=== PATIENT | female | born 1980 ===

== ENCOUNTER 2017-12-19 06:58 | Emergency (ER) | payer OTHER ==
[2017-12-19 07:22] VITALS: RESP 16
--- NOTE | 2017-12-19 08:12 | ED PDOC ---
HPI: Headache Time Seen by Provider: 12/19/17 07:39 Chief Complaint (Nursing): Headache History Per: Patient History/Exam Limitations: no limitations Onset/Duration Of Symptoms: Gradual (2 weeks) Current Symptoms Are (Timing): Other (waxing and waning) Severity: Moderate Quality: Dull, Aching Preceeding Symptoms: None Associated Symptoms: Photophobia. denies: Blurred Vision, Nausea, Vomiting, Extremity Weakness Additional History Per: Patient Additional Complaint(s): Patient complaints of headache, right ear pain and neck pain x 2 days. No medication taken [employer]. no trauma mild vertigo worse with head movement light and sounds, no n/v. no prev sx. Past Medical History Reviewed: Historical Data, Nursing Documentation, Vital Signs Vital Signs: Last Vital Signs Temp 97.7 F 12/19/17 07:20 Pulse 73 12/19/17 07:20 Resp 16 12/19/17 07:20 BP 128/82 12/19/17 07:20 Pulse Ox 100 12/19/17 07:20 - Medical History PMH: No Chronic Diseases - Family History Family History: States: Unknown Family Hx - Living Arrangements Living Arrangements: With Family - Social History Current smoker - smoking cessation education provided: No - Home Medications Home Medications: Ambulatory Orders Medication Instructions Recorded Amoxicillin/Clavulanate [Augmentin 1 tab PO BID #28 tab 12/19/17 875 MG-125 MG] oxyCODONE/Acetaminophen [Percocet 1 tab PO TID PRN #12 tab 12/19/17 5/325 mg Tab] - Allergies Allergies/Adverse Reactions: Allergies Allergy/AdvReac Type Severity Reaction Status Date / Time No Known Allergies Allergy Verified 12/19/17 07:20 Review of Systems ROS Statement: Except As Marked, All Systems Reviewed And Found Negative Constitutional: Negative for: Fever, Chills Eyes: Negative for: Conjunctivae Inflammation, Redness Cardiovascular: Negative for: Chest Pain, Palpitations Respiratory: Negative for: Cough, Shortness of Breath Gastrointestinal: Negative for: Nausea, Vomiting, Abdominal Pain Musculoskeletal: Positive for: Neck Pain Skin: Negative for: Rash Neurological: Positive for: Headache, Dizziness. Negative for: Weakness, Numbness, Incoordination, Change in Speech, Confusion, Seizures, Altered Mental Status Physical Exam - Reviewed Nursing Documentation Reviewed: Yes Vital Signs Reviewed: Yes - Physical Exam Appears: Positive for: Uncomfortable (tearfull) Head Exam: Positive for: ATRAUMATIC, NORMAL INSPECTION, NORMOCEPHALIC Skin: Positive for: Normal Color, Warm, Dry Eye Exam: Positive for: Normal appearance, EOMI, PERRL. Negative for: Nystagmus , Periorbital swelling, Periorbital tenderness, Conjunctival injection, Scleral icterus ENT: Positive for: Pharynx Is (clear,mmm), TM Is/Are (nml bl). Negative for: Nasal Congestion, Pharyngeal Erythema, Tonsillar Exudate, Tonsillar Swelling Neck: Positive for: Normal, Painless ROM, Supple. Negative for: Decreased ROM, Limited ROM, Trachea Midline, Pain On Movement Of Neck Cardiovascular/Chest: Positive for: Regular Rate, Rhythm, Chest Non Tender. Negative for: Edema, Gallop, Murmur, Bradycardia, Tachycardia Respiratory: Positive for: Normal Breath Sounds. Negative for: Decreased Breath Sounds, Accessory Muscle Use, Crackles, Rales, Rhonchi, Stridor, Wheezing , Respiratory Distress Pulses-Radial (L): 2+ Pulses-Radial (R): 2+ Gastrointestinal/Abdominal: Positive for: Normal Exam, Bowel Sounds, Soft. Negative for: Tenderness Back: Positive for: Normal Inspection. Negative for: L CVA Tenderness, R CVA Tenderness Extremity: Positive for: Normal ROM. Negative for: Tenderness, Pedal Edema, Calf Tenderness, Deformity, Swelling Neurologic/Psych: Positive for: Alert, yard jockey II-XII, Oriented, Mood/Affect ( anxious), Cerebellar Tests (nml), Gait (steady). Negative for: Motor/Sensory Deficits, Aphasia, Facial Droop - Laboratory Results Result Diagrams: 12/19/17 08:26 12/19/17 08:26 - ECG O2 Sat by Pulse Oximetry: 100 Pulse Ox Interpretation: Normal - Progress ED Course And Treament: PROCEDURE: CT HEAD WITHOUT CONTRAST. HISTORY: right temopral bernard COMPARISON: None available. TECHNIQUE: Axial computed tomography images were obtained through the head/brain without intravenous contrast. Radiation dose: Total exam DLP = 864.199 mGy-cm. This CT exam was performed using one or more of the following dose reduction techniques: Automated exposure control, adjustment of the mA and/or kV according to patient size, and/or use of iterative reconstruction technique. FINDINGS: Examination limited due to patient motion artifact. This partially limits evaluation of the posterior fossa. HEMORRHAGE: No intracranial hemorrhage. BRAIN: No mass effect or edema. No atrophy or chronic microvascular ischemic changes. VENTRICLES: Unremarkable. No hydrocephalus. CALVARIUM: Unremarkable. PARANASAL SINUSES: Complete opacification of right maxillary antrum. Likely chronic sinusitis. The remaining paranasal sinuses are unremarkable in appearance. MASTOID AIR CELLS: Unremarkable as visualized. No inflammatory changes. OTHER FINDINGS: None. IMPRESSION: No intracranial mass, hemorrhage or evidence of acute infarct. Complete opacification of right maxillary antrum. Limited evaluation of posterior fossa. Re-evaluation Time: 09:30 Condition: Improved Disposition - Clinical Impression Clinical Impression: Acute headache - Patient ED Disposition Is Patient to be Admitted: No Counseled Patient/Family Regarding: Studies Performed, Diagnosis, Need For Followup - Disposition Referrals: [facility] [Outside] (2 to 3 days) Disposition: Routine/Home Disposition Time: 10:12 Condition: GOOD Prescriptions: Amoxicillin/Clavulanate [Augmentin 875 MG-125 MG] 1 tab PO BID #28 tab oxyCODONE/Acetaminophen [Percocet 5/325 mg Tab] 1 tab PO TID PRN #12 tab PRN Reason: Pain, Moderate (4-7) Instructions: Acute Headache (ED) Forms: [employer] (Persian)
[2017-12-19] MEDS ORDERED: DiphenhydrAMINE 50 mg/ml Inj IVP STA (08:29)
[2017-12-19 08:34] LABS: BASO # 0.1 K/uL (0.0-0.2); BASO % 0.6 % (0.0-2.0); EOS # 0.1 K/uL (0.0-0.7); EOS % 0.9 % (0.0-4.0); HEMOGLOBIN 14.5 g/dL (12.0-16.0); LYMPH # 1.5 K/uL (1.0-4.3); LYMPH % 13.9 % (20.0-40.0); MEAN CELL VOLUME 87.1 fl (81.0-99.0); MEAN CORPUSCULAR HEMOGLOBIN 29.8 pg (27.0-31.0); MEAN CORPUSCULAR HGB CONC 34.2 g/dL (33.0-37.0); MEAN PLATELET VOLUME 7.8 fl (7.2-11.7); MONO # 0.5 K/uL (0.0-0.8); NEUT # 8.4 K/uL (1.8-7.0); NEUT % 79.6 % (50.0-75.0); RBC 4.87 Mil/uL (3.80-5.20); RED CELL DISTRIBUTION WIDTH 13.5 % (11.5-14.5); WHITE BLOOD COUNT 10.5 K/uL (4.8-10.8)
[2017-12-19 08:46] LABS: SQUAMOUS EPITHIAL 5 /hpf (0-5); URINE BILIRUBIN NEGATIVE (NEGATIVE); URINE BLOOD SMALL (NEGATIVE); URINE CLARITY SLIGHTY-CLOUDY (Clear); URINE COLOR YELLOW (YELLOW); URINE GLUCOSE (UA) NEG (Normal); URINE LEUKOCYTE ESTERASE NEG Leu/uL (Negative); URINE NITRATE NEGATIVE (NEGATIVE); URINE PROTEIN NEGATIVE (NEGATIVE); URINE UROBILINOGEN 0.2-1.0 mg/dL (0.2-1.0)
[2017-12-19 08:52] LABS: PARTIAL THROMBOPLASTIN TIME 32.8 Seconds (25.6-37.1); PROTHROMBIN TIME 11.1 Seconds (9.8-13.1)
[2017-12-19 08:55] LABS: BLOOD UREA NITROGEN 11 mg/dl (7-17); CALCIUM 9.3 mg/dL (8.4-10.2); GFR AFRICAN-AMERICAN > 60; GFR NON-AFRICAN AMERICAN > 60
--- NOTE | 2017-12-19 09:21 | CT ---
PROCEDURE: CT HEAD WITHOUT CONTRAST. HISTORY: right temopral bernard COMPARISON: None available. TECHNIQUE: Axial computed tomography images were obtained through the head/brain without intravenous contrast. Radiation dose: Total exam DLP = 864.199 mGy-cm. This CT exam was performed using one or more of the following dose reduction techniques: Automated exposure control, adjustment of the mA and/or kV according to patient size, and/or use of iterative reconstruction technique. FINDINGS: Examination limited due to patient motion artifact. This partially limits evaluation of the posterior fossa. HEMORRHAGE: No intracranial hemorrhage. BRAIN: No mass effect or edema. No atrophy or chronic microvascular ischemic changes. VENTRICLES: Unremarkable. No hydrocephalus. CALVARIUM: Unremarkable. PARANASAL SINUSES: Complete opacification of right maxillary antrum. Likely chronic sinusitis. The remaining paranasal sinuses are unremarkable in appearance. MASTOID AIR CELLS: Unremarkable as visualized. No inflammatory changes. OTHER FINDINGS: None. IMPRESSION: No intracranial mass, hemorrhage or evidence of acute infarct. Complete opacification of right maxillary antrum. Limited evaluation of posterior fossa.
[2017-12-19] MEDS ORDERED: Amoxicillin-Clav 875-125 mg Tab PO STA (10:08)
[2017-12-19] MEDS ORDERED: Amoxicillin-Clav 875-125 mg Tab PO ONE (10:35)
[2017-12-19 10:40] VITALS: BP 125/80; PULSE 75; TEMP 97.9; O2SAT 99
== END 2017-12-19 10:40 | disposition home or self-care (01) ==
LOC: H.ER 06:58
DX: R51 Headache (principal)
CPT/HCPCS: 70450; 80048; 81003; 81025; 85025; 85610; 85730; 96374; 96375; 99283; J1200; J2765

== ENCOUNTER 2019-02-14 23:30 | Emergency (ER) | payer SELFPAY ==
[2019-02-14 23:53] VITALS: BP 115/74; PULSE 77; RESP 18; TEMP 97.5; O2SAT 99
== END 2019-02-15 00:30 | disposition left against medical advice (07) ==
LOC: H.ER 23:30
DX: Z02.89 Encounter for other administrative examinations (principal)